=== PATIENT | female | born 1995 | race Caucasian/White ===

== ENCOUNTER 2020-10-02 18:44 | Emergency (ER) | payer MEDICAID ==
[~2020-10-02] VITALS: Ht 170.2 cm; Wt 103.0 kg
[2020-10-02 18:54] VITALS: BP_SYST 124
[2020-10-02] MEDS ORDERED: NACL 0.9% 1,000 ML IV ONE (19:30)
[2020-10-02] MEDS ORDERED: MECLIZINE HCL 25 MG TABLET (ANITVERT) PO ONE (19:30)
[2020-10-02] MEDS ORDERED: PANTOPRAZOLE SODIUM 40 MG/VIAL (PROTONIX) IVP ONE (19:30)
[2020-10-02 20:00] LABS: BASOPHILS % (AUTO) 0.3 % (0.0-2.0); EOSINOPHILS # (AUTO) 0.1 K/uL (0.0-0.4); EOSINOPHILS % (AUTO) 1.1 % (0.0-4.0); HEMATOCRIT 37.7 % (36-48); HEMOGLOBIN 12.9 g/dL (12.0-16.0); LYMPHOCYTES # (AUTO) 1.8 K/uL (1.0-5.5); LYMPHOCYTES % (AUTO) 20.6 % (20.5-51.5); MEAN CORPUSCULAR HEMOGLOBIN 31 pg (27-31); MEAN CORPUSCULAR HGB CONC 34 % (32-36); MEAN CORPUSCULAR VOLUME 89 fL (79.0-98.0); MONOCYTES # (AUTO) 0.7 K/uL (0.0-1.0); MONOCYTES % (AUTO) 8.2 % (1.7-9.3); NEUTROPHILS # (AUTO) 6.1 K/uL (1.8-7.7); NEUTROPHILS % (AUTO) 69.8 % (40.0-70.0); PLATELET COUNT (AUTO) 366 K/uL (130-430); RED BLOOD CELL COUNT(AUTO) 4.22 MIL/uL (4.2-6.2); RED CELL DISTRIBUTION WIDTH 12.3 % (9.0-15.0); WHITE BLOOD COUNT (AUTO) 8.7 K/uL (4.8-10.8)
[2020-10-02 20:15] LABS: CALCIUM 9.2 mg/dL (8.4-11.0); CREATININE 0.63 mg/dL (0.55-1.30); POTASSIUM 4.5 mmol/L (3.5-5.1)
[2020-10-02 20:20] LABS: ALBUMIN 3.7 g/dL (3.4-4.8); TOTAL BILIRUBIN 0.5 mg/dL (0.0-1.0)
[2020-10-02] MEDS ORDERED: DIPHENHYDRAMINE INJ 50 MG/ML VIAL IVP ONE (21:00)
[2020-10-02] MEDS ORDERED: MORPHINE 2 MG/ML INJ. SYRINGE IVP ONE (21:00)
[2020-10-02] MEDS ORDERED: MECL-103 PO (21:47)
[2020-10-02 22:12] VITALS: BP_SYST 102
== END 2020-10-02 22:12 | disposition home or self-care (01) ==
LOC: SED 18:44 → EDBD 18:44 → SED 22:12
DX: H81.10 Benign paroxysmal vertigo, unspecified ear (principal); Z79.899 Other long term (current) drug therapy
CPT/HCPCS: 36415; 80053; 83690; 85025; 96361; 96374; 96375; 99284; C9113; J1200; J2270; J7030; J8597

== ENCOUNTER 2020-10-08 23:45 | Emergency (ER) | payer MEDICAID ==
[~2020-10-08] VITALS: Ht 170.2 cm; Wt 103.0 kg
[~2020-10-08 23:45] MED LIST: MECL-103 PO
[2020-10-09 00:10] VITALS: BP_SYST 124
[2020-10-09 00:40] LABS: BASOPHILS % (AUTO) 0.4 % (0.0-2.0); EOSINOPHILS # (AUTO) 0.1 K/uL (0.0-0.4); EOSINOPHILS % (AUTO) 1.1 % (0.0-4.0); HEMATOCRIT 34.5 % (36-48); HEMOGLOBIN 11.8 g/dL (12.0-16.0); LYMPHOCYTES # (AUTO) 3.9 K/uL (1.0-5.5); LYMPHOCYTES % (AUTO) 37.6 % (20.5-51.5); MEAN CORPUSCULAR HEMOGLOBIN 31 pg (27-31); MEAN CORPUSCULAR HGB CONC 34 % (32-36); MEAN CORPUSCULAR VOLUME 89 fL (79.0-98.0); MONOCYTES # (AUTO) 1.2 K/uL (0.0-1.0); MONOCYTES % (AUTO) 11.2 % (1.7-9.3); NEUTROPHILS # (AUTO) 5.2 K/uL (1.8-7.7); NEUTROPHILS % (AUTO) 49.7 % (40.0-70.0); PLATELET COUNT (AUTO) 341 K/uL (130-430); RED BLOOD CELL COUNT(AUTO) 3.86 MIL/uL (4.2-6.2); RED CELL DISTRIBUTION WIDTH 12.5 % (9.0-15.0); WHITE BLOOD COUNT (AUTO) 10.4 K/uL (4.8-10.8)
[2020-10-09 01:00] LABS: CALCIUM 8.9 mg/dL (8.4-11.0); CREATININE 0.6 mg/dL (0.55-1.30); POTASSIUM 3.7 mmol/L (3.5-5.1)
[2020-10-09] MEDS ORDERED: KETOROLAC TROMETHAMINE 60 MG/2 ML VIAL IM ONE (01:00)
[2020-10-09 01:05] LABS: ALBUMIN 3.4 g/dL (3.4-4.8); TOTAL BILIRUBIN 0.2 mg/dL (0.0-1.0)
[2020-10-09] MEDS ORDERED: MECLIZINE HCL 25 MG TABLET (ANITVERT) PO ONE (01:30)
[2020-10-09 03:03] VITALS: BP_SYST 122
== END 2020-10-09 03:03 | disposition home or self-care (01) ==
LOC: SED 23:45
DX: H81.10 Benign paroxysmal vertigo, unspecified ear (principal); Z79.899 Other long term (current) drug therapy
CPT/HCPCS: 36415; 80053; 85025; 96372; 99283; J1885; J8597

== ENCOUNTER 2020-12-30 08:05 | Emergency (ER) | payer MEDICAID, SELFPAY ==
[~2020-12-30] VITALS: Ht 167.6 cm; Wt 100.2 kg
--- NOTE | 2020-12-30 08:05 | NUR ---
Patient to ER bed 4 to gown for evaluation. Side rails up. Report given to JOSE DAVID Austin.
--- NOTE | 2020-12-30 08:06 | NUR ---
PT COMES TO ER WITH C/O THROAT PAIN, BODYACHES FOR 2 DAYS, WORSENING THIS AM. DENIIES FEVES, BUT REPORTS CHILLS. RESP EVEN AND UNLABORED, ON RA @99%. SKIN W/D/I. DENIES ANY N/V/D.
--- NOTE | 2020-12-30 08:13 | NUR ---
DR OBRIEN AT BEDSIDE FOR EXAM.
[2020-12-30 08:29] VITALS: BP_SYST 147
[2020-12-30] MEDS ORDERED: PENI500T PO (08:42)
[2020-12-30] MEDS ORDERED: AMOXICILLIN 500 MG CAPSULE PO ONE (08:45)
--- NOTE | 2020-12-30 09:05 | NUR ---
Patient given written and verbal discharge instructions and verbalizes understanding. ER MD discussed with patient the results and treatment provided. Patient in stable condition. ID arm band removed. Rx of amoxicillin given. Patient educated on pain management and to follow up with PMD. Pain Scale . Opportunity for questions provided and answered. Medication side effect fact sheet provided.
== END 2020-12-30 09:05 | disposition home or self-care (01) ==
LOC: SED 08:05
DX: J03.90 Acute tonsillitis, unspecified (principal); Z20.822 Contact with and (suspected) exposure to COVID-19
CPT/HCPCS: 99283; U0003; C9803

== ENCOUNTER 2021-03-31 15:38 | Emergency (ER) | payer MEDICAID, SELFPAY ==
[~2021-03-31] VITALS: Ht 170.2 cm; Wt 100.7 kg
[~2021-03-31 15:38] MED LIST changes: +PENI500T PO
[2021-03-31 15:41] VITALS: BP_SYST 133
[2021-03-31] MEDS ORDERED: IBUP-1969 PO (18:28)
[2021-03-31 18:35] VITALS: BP_SYST 128
== END 2021-03-31 18:35 | disposition home or self-care (01) ==
LOC: SED 15:38
DX: R07.89 Other chest pain (principal); Z88.6 Allergy status to analgesic agent; Z88.0 Allergy status to penicillin
CPT/HCPCS: 71045; 93005; 99283

== ENCOUNTER 2023-11-09 16:08 | Emergency (ER) | payer MEDICAID ==
[~2023-11-09] VITALS: Ht 167.6 cm; Wt 107.5 kg
[2023-11-09 16:08] VITALS: BP_SYST 147; PULSE 66; RESP 18; TEMP 97.8; O2SAT 98
[~2023-11-09 16:08] MED LIST changes: +IBUP-1969 PO
[2023-11-09 17:51] LABS: HEMOGLOBIN 11.9 g/dL (12.0-16.0); MEAN CORPUSCULAR HEMOGLOBIN 30 pg (27-31); PLATELET COUNT (AUTO) 415 K/uL (130-430)
[2023-11-09 18:10] LABS: ALBUMIN 2.7 g/dL (3.4-4.8); CALCIUM 8.9 mg/dL (8.4-11.0); CREATININE 0.64 mg/dL (0.55-1.30); POTASSIUM 3.7 mmol/L (3.5-5.1); TOTAL BILIRUBIN 0.2 mg/dL (0.0-1.0); TOTAL PROTEIN, SERUM 6.6 g/dL (6.4-8.3)
[2023-11-09 18:20] LABS: BASOPHILS % (AUTO) 0.2 % (0.0-2.0); EOSINOPHILS # (AUTO) 0.2 K/uL (0.0-0.4); EOSINOPHILS % (AUTO) 1.5 % (0.0-4.0); HEMATOCRIT 34.6 % (36-48); LYMPHOCYTES # (AUTO) 2.7 K/uL (1.0-5.5); LYMPHOCYTES % (AUTO) 25.9 % (20.5-51.5); MEAN CORPUSCULAR HGB CONC 34 % (32-36); MEAN CORPUSCULAR VOLUME 88 fL (79.0-98.0); MONOCYTES # (AUTO) 1.1 K/uL (0.0-1.0); MONOCYTES % (AUTO) 10.6 % (1.7-9.3); NEUTROPHILS # (AUTO) 6.4 K/uL (1.8-7.7); NEUTROPHILS % (AUTO) 61.8 % (40.0-70.0); RED BLOOD CELL COUNT(AUTO) 3.95 MIL/uL (4.2-6.2); RED CELL DISTRIBUTION WIDTH 13.1 % (9.0-15.0); WHITE BLOOD COUNT (AUTO) 10.4 K/uL (4.8-10.8)
[2023-11-09 18:55] LABS: INR 0.9 (0.8-1.2); PROTHROMBIN TIME 9.8 SECS (9.5-12.5)
[2023-11-09 19:18] VITALS: BP_SYST 111; PULSE 72; RESP 16; TEMP 98.2; O2SAT 98
== END 2023-11-09 19:18 | disposition home or self-care (01) ==
LOC: SED 16:08
DX: O12.02 Gestational edema, second trimester (principal); Z3A.20 20 weeks gestation of pregnancy; Z79.899 Other long term (current) drug therapy; Z79.2 Long term (current) use of antibiotics
CPT/HCPCS: 36415; 80053; 83735; 85025; 85610; 85730; 93971; 99284